=== PATIENT | male | born 1995 | race Caucasian/White ===

== ENCOUNTER 2016-09-29 09:16 | Inpatient (IN) | payer MEDICAID, SELFPAY ==
[~2016-09-29] VITALS: Ht 180.3 cm; Wt 58.0 kg
[2016-09-29] MEDS ORDERED: LORazepam 1 MG TAB PO STA (09:49)
[2016-09-29 10:12] LABS: MEAN CORPUSCULAR HGB CONC 33.5 g/dl (32.0-36.5); MEAN CORPUSCULAR VOLUME 92.3 fl (80.0-96.0); RED CELL DISTRIBUTION WIDTH 13.2 % (11.5-14.5); WHITE BLOOD COUNT 7.4 K/mm3 (4.0-10.0)
[2016-09-29 10:45] LABS: ALBUMIN 4.4 GM/DL (3.2-5.2); ALBUMIN/GLOBULIN RATIO 1.13 (1.00-1.93); ALKALINE PHOSPHATASE 85 U/L (45-117); ALT/SGPT 34 U/L (12-78); ANION GAP 8 MEQ/L (8-16); AST/SGOT 18 U/L (15-37); BILIRUBIN,DIRECT 0.1 MG/DL (0.0-0.2); BILIRUBIN,TOTAL 0.6 MG/DL (0.2-1.0); BLOOD UREA NITROGEN 20 MG/DL (7-18); CALCIUM LEVEL 9.1 MG/DL (8.5-10.1); CARBON DIOXIDE LEVEL 28 MEQ/L (21-32); CHLORIDE LEVEL 103 MEQ/L (98-107); CREATININE FOR GFR 1.03 MG/DL (0.70-1.30); GLUCOSE, FASTING 91 MG/DL (70-105); POTASSIUM SERUM 4.2 MEQ/L (3.5-5.1); SODIUM LEVEL 139 MEQ/L (136-145); TOTAL PROTEIN 8.3 GM/DL (6.4-8.2)
[2016-09-29 11:28] LABS: METHADONE URINE NEGATIVE (NEGATIVE)
[2016-09-29] MEDS ORDERED: NICOTINE 21MG/24HR 1 EA TRANSDERMAL TD ONE (12:45)
[2016-09-29 14:37] VITALS: BP 130/56
[2016-09-29] MEDS ORDERED: MAALOX 30 ML SUSP *UDC PO PRN (16:30)
[2016-09-29] MEDS ORDERED: MOM 30ML SUSPENSION UDC PO PRN (16:30)
[2016-09-29] MEDS ORDERED: ACETAMINOPHEN TAB 650MG DOSE (2X325MG) PO PRN (16:30)
[2016-09-29] MEDS: diphenhydrAMINE 25 MG CAP PO PRN (18:52)
[2016-09-29] MEDS: traZODone 50 MG TAB PO PRN (21:19)
[2016-09-30 06:21] VITALS: BP 118/56
[2016-09-30] MEDS ORDERED: DOCUSATE SODIUM 100 MG CAP PO SCH (08:00)
[2016-09-30] MEDS: diphenhydrAMINE 25 MG CAP PO PRN ×2 (08:06→16:10)
[2016-09-30] MEDS: NICOTINE 21MG/24HR 1 EA TRANSDERMAL TD SCH (08:07)
--- NOTE | 2016-09-30 09:14 | HPEPDOC ---
Medical History and Physical Date of Admission September 29, 2016 at 14:02 History and Physical PCP: None ATTENDING: Dr. Baljinder Baxter HPI: 20yoM admitted to [facility] for depressive disorder, being medically examined today. No acute medical complaints today. Denies any fevers, chills, weakness, fatigue, BOLTON, CP, SOB, cough, palpitations, abdominal pain, N/V/D or changes in bowel or bladder habits. PMHx: Anxiety Depression tobacco use alcohol use PSHX: denies SOCHX: Resides in: [facility]. Lives with mother. Marital Status: single. Kids: None Employment: Unemployed. Tobacco use: One half pack per day ETOH: States previously drinking frequently depending on access to money. 6 beers. Illicit Drugs: Marijuana daily IV Drug Use: Denies Tattoos done unprofessionally: Denies FAMHX: Mother: Alive, anxiety, depression Father: Alive, bipolar disorder Siblings: One sister Alive, well Children: None Unexpected deaths due to medical reasons: None. ROS: As noted in HPI, otherwise 11pt ROS of systems reviewed and remarkable only for states he has had trouble keeping weight on. States he has been eating and drinking. No nausea or vomiting. Denies abdominal pain,diarrhea, change in bowel habits. PE: GEN: 20 yo M, appears stated age. Thin appearing. No acute distress. Alert and oriented x 3. Appears anxious during exam. HEENT: Normocephalic, atraumatic. Pupils are equal, round, and reactive to light. Extraocular movements are intact. No nystagmus appreciated. Sclera are nonicteric. Conjunctiva without injection. Nose midline. Nasal turbinates without bogginess. EACs both patent BL. TMs both visualized and nuñez with good cone of light, no bulging or erythema. No facial asymmetry. Moist mucous membranes. Dentition fair. Pharynx pink and moist, no cobblestoning. Neck supple , trachea midline. No lymphadenopathy or thyromegaly appreciated. CHEST: Regular rate and rhythm, +S1, +S2 LUNGS: Clear to auscultation bilaterally. No wheezes, rales, or rhonchi. Breathing appears symmetric and easy. Patient is speaking in full sentences. No accessory muscle use. ABD: Round, soft, non-tender, non-distended. +Bowel sounds throughout. No rebound or guarding. No costovertebral angle tenderness. EXT: Pulses 2+ bilaterally dorsalis pedis and radial. No lower extremity edema appreciated. SKIN: [place], dry, warm. Capillary refill <2sec. No rashes. NEURO: Alert and oriented x 3. Cranial nerves III-XII are intact. No focal deficits appreciated. EKG: pending. A&P: 20yoM admitted to [facility] for depressive disorder 1. Psych. Plan per Psychiatry. Obtain baseline EKG to assure the safety of psychiatric medications as they can prolong the QT interval. 2. Nicotine dependence. Patch available. 3. BMI 18.1. TSH WNL. Request nutritional consult. Monitor I/O, daily weight. 4. Follow up. No Primary Care Provider. Will attempt to establish PCP on discharge. 5. Substance use. Per psychiatry. Vital Signs Vital Signs Date Time Temp Pulse Resp B/P (MAP) Pulse Ox O2 Delivery O2 Flow Rate FiO2 09/30/16 06:21 99.4 91 18 118/56 (76) Room Air 09/29/16 14:17 100 Laboratory Data Labs 24H Laboratory Tests 2 09/29/16 09:43: Urine Amphetamines Screen NEGATIVE, Urine Benzodiazepines Screen NEGATIVE, Urine Opiates Screen NEGATIVE, Urine Methadone Screen NEGATIVE, Urine Barbiturates Screen NEGATIVE, Urine Phencyclidine Screen NEGATIVE, Urine Cocaine Metabolite Screen NEGATIVE, Urine Cannabinoids Screen POSITIVEH 09/29/16 09:57: Anion Gap 8, Calcium Level 9.1, Aspartate Amino Transf (AST/SGOT) 18, Alanine Aminotransferase (ALT/SGPT) 34, Alkaline Phosphatase 85, Total Bilirubin 0.6, Direct Bilirubin 0.1, Total Protein 8.3H, Albumin 4.4, Albumin/Globulin Ratio 1.13, Thyroid Stimulating Hormone (TSH) 3.500, Salicylates Level 2.1L, Acetaminophen Level < 2.0L, Ethyl Alcohol Level < 0.003 CBC/BMP Laboratory Tests 09/29/16 09:57 Red Blood Count 5.29, Mean Corpuscular Volume 92.3, Mean Corpuscular Hemoglobin 31.0, Mean Corpuscular Hemoglobin Concent 33.5, Red Cell Distribution Width 13.2 Home Medications No Active Prescriptions or Reported Meds Allergies Coded Allergies: No Known Allergies (Unverified , 09/29/16) Dottie Goldberg September 30, 2016 09:14
[2016-09-30] MEDS: CitaloPRAM (CeleXA) 10 MG TABLET PO SCH (11:54)
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
[2016-09-30 18:12] VITALS: BP 117/71
--- NOTE | 2016-09-30 20:09 | ECGEPIP ---
Stationary ECG Study [facility] Test Date: 2016-09-30 Pat Name: JASS NGUYEN Department: Room: [place] [address] Gender: M Dispatch Lead: : 1995 Requested By: Dottie Goldberg Order Number: [id number] Reading MD: Luisa Pandey Measurements Intervals Independence Rate: 74 P: 60 MA: 150 QRS: 70 QRSD: 93 T: 40 QT: 355 QTc: 394 Interpretive Statements SINUS RHYTHM SEPTAL EARKY REPOLAR NO PRIOR Electronically Signed On 09-30-2016 20:08:41 EDT by Luisa Pandey
[2016-09-30] MEDS: traZODone 50 MG TAB PO PRN (20:50)
[2016-10-01 06:35] VITALS: BP 113/76
[2016-10-01] MEDS: NICOTINE 21MG/24HR 1 EA TRANSDERMAL TD SCH (09:36)
[2016-10-01] MEDS: CitaloPRAM (CeleXA) 10 MG TABLET PO SCH (09:36)
[2016-10-01] MEDS ORDERED: CitaloPRAM (CeleXA) 10 MG TABLET PO ONE (11:45)
[2016-10-01] MEDS: diphenhydrAMINE 25 MG CAP PO PRN ×2 (14:32→19:12)
--- NOTE | 2016-10-01 16:17 | IPN ---
DATE: 10/01/2016 A 20-year-old male admitted to our unit with depression and suicidal ideation. SUBJECTIVE: "I'm not doing too well." OBJECTIVE: The patient reports significant mood swings, emotional fluctuations, at times angry. He was unable to sleep last night and said that his worry, anxiety, and emotions were very high. The patient is tolerating well the medication and denies side effects. MENTAL STATUS EXAMINATION: The patient is dressed in [facility]. The patient has fair eye contact. Speech is slow and monotone. Mood is depressed and anxious. Affect is restricted and congruent with mood. No evidence of delusions or hallucinations. Short and long-term memory are intact. The patient is fully oriented. Associations are intact. Thinking is logical. Thought content is appropriate. The patient is able to contract for safety during the interview. Denies suicidal or homicidal ideation. Insight and judgment are limited. ASSESSMENT: 1. Depression. 2. Suicidal ideation. PLAN: 1. Increase Celexa to 20 mg by mouth every morning. 2. Increase trazodone to 100 mg by mouth at bedtime. 3. Continue medication management, individual and group therapy.
[2016-10-01 18:00] VITALS: BP 111/56
[2016-10-01] MEDS: traZODone 100 MG TAB PO SCH (20:51)
[2016-10-02 06:37] VITALS: BP 92/49
[2016-10-02] MEDS: NICOTINE 21MG/24HR 1 EA TRANSDERMAL TD SCH (08:12)
[2016-10-02] MEDS: CitaloPRAM (CeleXA) 20 MG TAB PO SCH (08:25)
[2016-10-02] MEDS: diphenhydrAMINE 25 MG CAP PO PRN (14:27)
--- NOTE | 2016-10-02 15:24 | IPN ---
DATE: 10/02/2016 A 20-year-old male patient admitted to our unit with depression and suicidal ideation. SUBJECTIVE: "I'm very anxious." OBJECTIVE: Patient continues to report high anxiety. He slept better yesterday with help of trazodone 100 mg. Patient is experiencing intermittent suicidal thoughts, but is able to contract for safety during the interview. Patient contracts for safety and states that he can notify nursing staff when suicidal thoughts return. Patient does have low inside. Patient is experiencing significant and frequent negative cognitive distortions. MENTAL STATUS EXAMINATION: Patient dressed in [facility]. Patient has fair eye contact. Speech is slow and monotone. Mood is depressed and anxious. Affect is restricted and congruent with mood. No evidence of delusions or hallucinations. Short and long-term memory are fair. Patient is fully oriented. Associations are intact. Thinking is logical. Thought content is appropriate. Patient is able to contract for safety during his hospitalization. Insight and judgment are limited. ASSESSMENT: 1. Depression. 2. Suicidal ideation. PLAN: 1. Celexa to 20 mg by mouth every morning. 2. Trazodone 100 mg by mouth at bedtime. 3. Continue medication management, individual and group therapy.
[2016-10-02 18:15] VITALS: BP 122/69
[2016-10-02] MEDS: traZODone 100 MG TAB PO SCH (20:51)
[2016-10-03 06:10] VITALS: BP 103/55
[2016-10-03] MEDS: NICOTINE 21MG/24HR 1 EA TRANSDERMAL TD SCH (08:18)
[2016-10-03] MEDS: CitaloPRAM (CeleXA) 20 MG TAB PO SCH (08:18)
[2016-10-03] MEDS: diphenhydrAMINE 25 MG CAP PO PRN ×2 (11:23→20:48)
[2016-10-03 18:17] VITALS: BP 117/60
[2016-10-03] MEDS ORDERED: LORazepam 1 MG TAB PO ONE (21:45)
[2016-10-03] MEDS: MIRTAZAPINE 15 MG TAB PO SCH (21:58)
[2016-10-04 06:24] VITALS: BP 99/54
[2016-10-04] MEDS: NICOTINE 21MG/24HR 1 EA TRANSDERMAL TD SCH (08:56)
[2016-10-04] MEDS: CitaloPRAM (CeleXA) 20 MG TAB PO SCH (08:56)
[2016-10-04] MEDS: diphenhydrAMINE 25 MG CAP PO PRN (11:48)
[2016-10-04] MEDS ORDERED: LORazepam 1 MG TAB PO PRN (12:30)
[2016-10-04] MEDS ORDERED: hydrOXYzine 50 MG TAB PO STA (15:51)
[2016-10-04] MEDS ORDERED: hydrOXYzine 25 MG TAB PO PRN (16:00)
[2016-10-04 18:00] VITALS: BP 110/67
[2016-10-04] MEDS: MIRTAZAPINE 15 MG TAB PO SCH (20:55)
[2016-10-04] MEDS ORDERED: MIRTAZAPINE 15 MG TAB PO SCH (21:00)
[2016-10-05 06:24] VITALS: BP 107/55
--- NOTE | 2016-10-05 06:28 | IPN ---
DATE: 10/04/2016 Evaluated 20-year-old male admitted to the inpatient mental health unit for depression and suicidal ideation. SUBJECTIVE: The patient reports "I can't sleep." OBJECTIVE: The patient continues to report problems sleeping and for that reason, he has been requesting medication for sleep. He was given Ativan and then it was ordered for him to have Ativan 1 mg by mouth twice a day as needed for anxiety and agitation, but this author did not know about his substance abuse and addiction problems, and for that reason, this medication was discontinued today. He denies suicidal ideation, homicidal ideation, and denies psychotic thoughts. He minimizes his alcohol and marijuana consumption and he says that he had drank liquor the week before he came to the emergency department, and he says that he smokes marijuana only once in a while, but in all his reports from the emergency room and his attending physician, it stated that he has a more frequent use of alcohol and marijuana. His judgment and insight are poor, has medication-seeking behavior, and his impulse control is poor. MENTAL STATUS EXAMINATION: He was dressed in hospital clothes, had good eye contact, cooperative attitude but anxious and depressed. His affect was constricted, and his mood was sad and anxious. He was not seen responding to internal stimuli. His recent and remote memory are fair, he is alert and oriented times three, there is no loosening of associations. His thought process is logical, and his thought content is negative for homicidal ideation, negative for suicidal ideation, and negative for psychotic thoughts. ASSESSMENT: 1. Depression. 2. Suicidal ideation. 3. Substance abuse. PLAN: 1. Continue with Celexa 20 mg by mouth daily. 2. He will need medication adjustment for sleep medication. Today he was started on Atarax because he reports no improvement with trazodone and this author did not want to give him any more Ativan due to his problem with addiction. He will need to continue at the inpatient mental health unit for improvement until stabilized. We will followup.
[2016-10-05] MEDS: CitaloPRAM (CeleXA) 20 MG TAB PO SCH (08:34)
[2016-10-05] MEDS: NICOTINE 21MG/24HR 1 EA TRANSDERMAL TD SCH ×2 (08:56→09:32)
[2016-10-05] MEDS ORDERED: CELE20TA PO (10:51)
[2016-10-05] MEDS ORDERED: MIRT15TA3 PO (10:51)
--- NOTE | 2016-10-05 21:40 | MHDS ---
DATE OF ADMISSION: 09/29/2016 DATE OF DISCHARGE: 10/05/2016 LEGAL STATUS ON ADMISSION: 9.39 legal status. HISTORY OF PRESENT ILLNESS: A 20-year-old male without previous psychiatric history admitted to our unit on a 9.39 legal status. According to the chart, the patient came to the emergency department to be evaluated for depression, suicidal ideation with plan to "gunshot." The patient reported significant symptoms of depression and anxiety. Also, was stating that he has thoughts of suicide and "overwhelming anxiety." He says that this anxiety causes him to become increasingly agitated. "The lightest thing causes me to freak out and break things." He also said that he left his job 2 weeks ago and feels ashamed. The patient reports has very poor self esteem. He could not contract for safety and therefore was admitted to our unit. Patient also admits to marijuana on daily basis and alcohol. During the initial interview in our unit, patient was very tearful with poor speech, restricted sad facial expression and reported feeling worse for the last several weeks. Says that he has been withdrawing and staying at home, that he has problems falling asleep, says he cannot sleep more than 5 hours, has very low energy and poor self esteem. His thoughts are very negative and admitted that he has been thinking about suicide for the last 2 weeks. His description of his anxiety is "I get shaky." "I can't get the words out." He feels that he is not in control. He is worried and insecure and feels in the spot and that people are watching his behavior and he is afraid that he will make a mistake and make a fool of himself. During the interview, there is no evidence of psychotic symptoms. No auditory or visual hallucinations or delusions. Again, patient admits the use of alcohol and cannabis on a daily basis and has experimented with drugs such as cocaine, acid, mushroom, and pain killers. LABORATORY DATA: On admission, CBC was within normal limits, CMP was unremarkable except BUN of 20. Urine drug screen is positive for cannabis. Blood alcohol level is negative. HOSPITAL COURSE: Patient started on Celexa 10 mg by mouth every morning and trazodone 50 mg by mouth at bedtime. He could not sleep with trazodone 50 mg, and the dosage was increased to 100 mg. He had no good results with the above and during the weekend, he was placed on Ativan for one day with again poor results and later was placed on Remeron 30 mg by mouth at bedtime. Patient reports that he can sleep well with Remeron. On 10/05 patient is requesting to be discharged. Patient says that he is feeling better although that he still has mood swings, however he does not have suicidal thoughts and wants to be treated in outpatient basis. Patient has no psychotic symptoms. No auditory or visual hallucinations or delusions. Patient has very low insight about his alcohol and cannabis use. Patient does not think he needs treatment. A meeting was held with his mother before discharge. Meeting went well. Patient is therefore stable. He does not meet the criteria for involuntary inpatient hospitalization, patient wants to go and wants to continue taking his treatment as outpatient and following up appointments. Therefore, he is discharged on 10/05/2016, MEDICATIONS AT DISCHARGE: - Celexa 20 mg by mouth every morning - Remeron 30 mg by mouth at bedtime MENTAL STATUS EXAMINATION AT DISCHARGE: The patient is dressed in [facility]. The patient is calm and cooperative. His speech is clear, coherent with normal rate and spontaneous. Patient has good eye contact. Mood is slightly anxious and depressed but significantly improved from admission. Affect is congruent with mood. Patient is oriented to time, place, person, and situation. Maintains attention and concentration correctly. Instant recall, recent and remote memory are intact. Thought processes are coherent, logical, and goal-directed. The patient does not have auditory or visual hallucinations. The patient does not have paranoid, persecutory, somatic, grandiose, or presybeterian delusions. The patient denies suicidal or homicidal ideation. Judgment and insight are fair except to what is related to his chemical dependency since he does not need help. DISCHARGE DIAGNOSES: AXIS I: Major depressive disorder, substance-induced mood disorder, alcohol and cannabis abuse, general anxiety disorder. AXIS II: Deferred. AXIS III: None acute. INSTRUCTIONS TO THE PATIENT: Patient is to continue taking his medications as prescribed and follow up appointments. He is advised to maintain absolute sobriety from drugs and alcohol. Patient has scheduled appointment for psychotropic medication management, interview of psychotherapy and primary care physician.
== END 2016-10-05 13:15 | disposition home or self-care (01) | DRG 881 ==
LOC: M ED 09:57 → M ED INP 14:02 → M PSY 14:29
PROVIDERS: ADMIT Psychiatry & Neurology Psychiatry; ATTEND Psychiatry & Neurology Psychiatry
DX: F32.9 Major depressive disorder, single episode, unspecified (principal); F10.94 Alcohol use, unspecified with alcohol-induced mood disorder; R45.851 Suicidal ideations; F41.1 Generalized anxiety disorder; F19.14 Other psychoactive substance abuse with psychoactive substance-induced mood disorder; F17.210 Nicotine dependence, cigarettes, uncomplicated; F12.10 Cannabis abuse, uncomplicated; Z79.899 Other long term (current) drug therapy

== ENCOUNTER 2018-09-24 12:11 | Emergency (ER) | payer MEDICAID, OTHER, SELFPAY ==
[~2018-09-24] VITALS: Ht 182.9 cm; Wt 62.8 kg
[~2018-09-24 12:11] MED LIST: CELE20TA PO; MIRT15TA3 PO
[2018-09-24] MEDS ORDERED: IBUPROFEN 600 MG TAB PO ONE (12:45)
[2018-09-24] MEDS ORDERED: LIDOCAINE 1% MDV 20ML VIAL SC ONE (13:00)
[2018-09-24] MEDS ORDERED: BUPIVACAINE HCL 0.25% 10 ML VIAL SC ONE (13:00)
[2018-09-24 13:30] LABS: BASO % 0.1 % (0.0-1.0); EOS # 0.1 10^3/uL (0.0-0.50); EOS % 1.4 % (0.0-3.0); HEMATOCRIT 45.5 % (42.0-52.0); HEMOGLOBIN 15.6 g/dl (13.5-17.5); LYMPH # 1.5 10^3/uL (1.5-6.5); LYMPH % 20.9 % (24.0-44.0); MEAN CORPUSCULAR HEMOGLOBIN 31.1 pg (27.0-33.0); MEAN CORPUSCULAR HGB CONC 34.3 g/dl (32.0-36.5); MEAN CORPUSCULAR VOLUME 90.8 fl (80.0-96.0); MONO # 0.6 10^3/uL (0.0-0.8); MONO % 8.5 % (0.0-5.0); PLATELET COUNT, AUTOMATED 141 10^3/uL (150-450); RED BLOOD COUNT 5.01 10^6/uL (4.30-6.10); WHITE BLOOD COUNT 7.2 10^3/uL (4.0-10.0)
[2018-09-24 13:41] LABS: BLOOD UREA NITROGEN 13 MG/DL (7-18); CALCIUM LEVEL 8.7 MG/DL (8.5-10.1); CARBON DIOXIDE LEVEL 29 MEQ/L (21-32); CHLORIDE LEVEL 107 MEQ/L (98-107); CREATININE FOR GFR 0.83 MG/DL (0.70-1.30); GLOMERULAR FILTRATION RATE > 60.0 (>60); GLUCOSE, FASTING 78 MG/DL (70-100); POTASSIUM SERUM 4.3 MEQ/L (3.5-5.1); SODIUM LEVEL 142 MEQ/L (136-145)
[2018-09-24] MEDS ORDERED: IBUP-1022 PO (13:59)
[2018-09-24] MEDS ORDERED: CLEO300C2 PO (13:59)
[2018-09-24 14:08] VITALS: BP 124/67
== END 2018-09-24 14:12 | disposition home or self-care (01) ==
LOC: M ED 12:11
DX: K04.7 Periapical abscess without sinus (principal); F32.9 Major depressive disorder, single episode, unspecified

== ENCOUNTER 2025-01-14 10:44 | Emergency (ER) | payer SELFPAY ==
[~2025-01-14] VITALS: Ht 182.9 cm; Wt 77.1 kg
[~2025-01-14 10:44] MED LIST changes: +CLEO300C2 PO; +IBUP600T42 PO
[2025-01-14 11:42] LABS: KETONE, URINE AUTO RFX TRACE mg/dL (NEGATIVE); LEUKOCYTE ESTERASE UR AUTO RFX NEGATIVE (NEGATIVE); MUCUS, URINE RFX SMALL (NEGATIVE); NITRITE, URINE AUTO RFX NEGATIVE (NEGATIVE); RBC, URINE AUTO RFX 4 /HPF (0-3); SQUAM EPITHELIAL CELL UR AURFX 0 /HPF (0-6); WBC, URINE AUTO RFX 2 /HPF (0-3)
[2025-01-14 13:14] LABS: Trichomonas vaginalis (AMP) NOT DETECTED (NEGATIVE)
[2025-01-14 13:38] LABS: GC DNA AMPLIFICATION NEGATIVE (NEGATIVE)
[2025-01-14 15:04] LABS: HEPATITIS B SURFACE ANTIBODY NEGATIVE (POSITIVE)
[2025-01-14 15:29] LABS: HIV 1&2 SCREEN NEGATIVE (NEGATIVE)
[2025-01-14 15:37] LABS: HEPATITIS C VIRUS ABY INDEX < 0.02 INDEX (<0.8)
[2025-01-14] MEDS: LIDOCAINE 1% SDV 5 ML VIAL DILUENT ONE (16:00)
[2025-01-14] MEDS: cefTRIAXone 500 MG VIAL IM ONE (16:00)
[2025-01-14] MEDS ORDERED: MOXI1TAB PO (16:02)
[2025-01-14 16:13] VITALS: BP 116/70; TEMP 97.4; O2SAT 100
[2025-01-15] MEDS ORDERED: DOXY-441 PO (09:04)
== END 2025-01-14 16:14 | disposition home or self-care (01) ==
LOC: M ED 10:44
DX: R30.0 Dysuria (principal); Z79.2 Long term (current) use of antibiotics; Z79.1 Long term (current) use of non-steroidal anti-inflammatories (NSAID)

== ENCOUNTER 2025-02-18 15:19 | Emergency (ER) | payer SELFPAY ==
[~2025-02-18] VITALS: Ht 182.9 cm; Wt 73.2 kg
[~2025-02-18 15:19] MED LIST changes: +DOXY-441 PO; +MOXI1TAB PO
[2025-02-18 15:23] VITALS: TEMP 98.6
[2025-02-18 16:04] LABS: PLATELET COUNT, AUTOMATED 212 10^3/uL (150-450)
[2025-02-18 16:18] LABS: ALT/SGPT 17 U/L (7.0-40); AST/SGOT 20 U/L (<34); CALCIUM LEVEL 9.5 MG/DL (8.5-10.1); CARBON DIOXIDE LEVEL 26 MMOL/L (20-31); CHLORIDE LEVEL 105 MMOL/L (98-107); CREATININE FOR GFR 0.75 MG/DL (0.70-1.30); GLOMERULAR FILTRATION RATE > 90.0 (>60); POTASSIUM SERUM 3.9 MMOL/L (3.5-5.1); SALICYLATE LEVEL < 3.0 MG/DL (<30); SODIUM LEVEL 141 MMOL/L (136-145)
[2025-02-18 16:19] LABS: ETHYL ALCOHOL (ETHANOL) 0.003 % (0.000-0.010)
[2025-02-18 17:00] VITALS: BP 133/67; O2SAT 100
== END 2025-02-18 17:48 | disposition left against medical advice (07) ==
LOC: M ED 15:19
DX: Z53.21 Procedure and treatment not carried out due to patient leaving prior to being seen by health care provider (principal)